=== PATIENT | male | born 1950 | race Caucasian/White ===

== ENCOUNTER 2017-01-06 18:44 | Inpatient (IN) | payer OTHER, BC ==
[~2017-01-06] VITALS: Ht 175.3 cm; Wt 89.3 kg
[2017-01-06 19:04] LABS: BASOPHIL COUNT 0.1 K/uL (0-0.1); EOSINOPHIL (%) 1.4 % (0-5); EOSINOPHIL COUNT 0.2 K/uL (0-0.3); HEMATOCRIT 42.3 % (38.0-50.0); IMMATURE GRANULOCYTE (%) 0.8 % (0.0-0.7); IMMATURE GRANULOCYTE COUNT 0.1 K/uL; INSTRUMENT ABS NEUTROPHIL CT 7.7 K/uL; MCH 31.9 PG (29.0-34.0); MCHC 34.3 G/DL (30.0-36.0); MCV 93.2 FL (86-99); MEAN PLAT.VOLUME 9.2 uM^3 (9.0-12.4); MONOCYTE (%) 7.7 % (3-12); MONOCYTE COUNT 0.8 K/uL (0-0.8); NEUTROPHIL (%) 70.9 % (45-76); NEUTROPHIL COUNT 7.7 K/uL (1.8-6.4); PLATELET COUNT 223 K/uL (156-360); RBC DIS.WIDTH-CV 13.8 % (11.8-14.6); RBC DIS.WIDTH-SD 47.1 % (39-53); RED BLOOD COUNT 4.54 M/uL (4.00-5.50); WHITE BLOOD COUNT 10.9 K/uL (4.1-10.2)
[2017-01-06 19:13] LABS: AMYLASE 78 IU/L (1-118); CHLORIDE 97 mEq/L (99-109); POTASSIUM 4.7 mEq/L (3.7-5.4); SODIUM 130 mEq/L (136-147)
[2017-01-06 19:14] LABS: GLUCOSE 162 mg/dL (70-99)
[2017-01-06 19:16] LABS: ANION GAP 14 MEQ/L (2-14)
[2017-01-06 19:17] LABS: SERUM ETHYL ALCOHOL < 10 mg/dL
[2017-01-06 19:26] LABS: GFR ESTIMATE (CALCULATED) 54 mL/min/; LIPASE 52 U/L (1.0-51.0); UREA NITROGEN (BUN) 27 mg/dL (9-23)
[2017-01-06 20:20] LABS: ADD MIUA? YES; BILIRUBIN NEGATIVE; BLOOD NEGATIVE; COLOR YELLOW ((YELLOW)); GLUCOSE (STRIP) NEGATIVE; KETONES NEGATIVE; LEUKOCYTES NEGATIVE; NITRITE NEGATIVE; PROTEIN (STRIP) 100; SPECIFIC GRAVITY 1.016 (1.000-1.030); UROBILINOGEN 0.2 MG/DL (0.2-1.0)
[2017-01-06 20:22] LABS: BACTERIA RARE /HPF; EPITHELIAL CELLS NONE SEEN /HPF; MUCUS TRACE /LPF; RED BLOOD CELLS 0-5 /HPF (0-5); UCUL ADDED? NO; WHITE BLOOD CELLS 0-5 /HPF (0-5)
[2017-01-06 20:28] LABS: TROP-I INTERPRETATION NEGATIVE; TROPONIN-I 0.01 ng/mL (0.0-0.30)
[2017-01-06 20:32] LABS: ADD MEDTOX COMMENT Y; AMPHETAMINE NEGATIVE (500 ng/mL); BARBITURATES NEGATIVE (200 ng/mL); BENZODIAZEPINES NEGATIVE (150 ng/mL); COCAINE NEGATIVE (150 ng/mL); INTERNAL CONTROLS VALID? YES; METHADONE NEGATIVE (200 ng/mL); METHAMPHETAMINE NEGATIVE (500 ng/mL); OPIATES (MORPHINE) NEGATIVE (100 ng/mL); OXYCODONE NEGATIVE (100 ng/mL); PHENCYCLIDINE NEGATIVE (25 ng/mL); PROPOXYPHENE NEGATIVE (300 ng/mL); THC CANNABINOIDS PRESUMPTIVE POSITIVE (50 ng/mL); TRICYCLIC ANTIDEPRESSANTS NEGATIVE (300 ng/mL)
[2017-01-06 22:40] LABS: TOTAL BILIRUBIN 0.4 mg/dL (0.0-1.0)
[2017-01-06 22:41] LABS: ALKALINE PHOSPHATASE 60 IU/L (3-129)
[2017-01-06 22:44] LABS: DIRECT BILIRUBIN 0.2 mg/dL (0.0-0.3)
[2017-01-06] MEDS ORDERED: ALLOPURINOL300 MG PO (23:00)
[2017-01-06] MEDS ORDERED: CITALOPRAM HBR20 MG PO (23:01)
[2017-01-06] MEDS ORDERED: GLIMEPIRIDE4 MG PO (23:02)
[2017-01-06] MEDS ORDERED: LISINOPRIL40 MG PO (23:02)
[2017-01-06] MEDS ORDERED: APRESOLINE50 MG PO (23:02)
[2017-01-06] MEDS ORDERED: LOPRESSOR50 MG PO (23:03)
[2017-01-06] MEDS ORDERED: SPIRONOLACTONE25 MG PO (23:03)
[2017-01-06] MEDS ORDERED: CLOPIDOGREL75 MG PO (23:03)
[2017-01-06] MEDS ORDERED: COLCRYS0.6 MG PO (23:04)
[2017-01-06] MEDS ORDERED: ASPIR 8181 M1 PO (23:04)
[2017-01-07] VITALS (7 sets, daily range): BP systolic 128–156; BP diastolic 61–69
[2017-01-07 06:25] LABS: POINT-OF-CARE METER ID UU14117124
[2017-01-07 10:01] LABS: ANION GAP 7 MEQ/L (2-14); CHLORIDE 105 MEQ/L (99-109); GFR ESTIMATE (CALCULATED) > 59 mL/min/; GLUCOSE 128 mg/dL (70-99); POTASSIUM 4.6 MEQ/L (3.7-5.4); SAMPLE HEMOLYSIS CHECK 0; SAMPLE ICTERIC CHECK 0; SAMPLE LIPEMIA CHECK 0; SODIUM 136 MEQ/L (136-147); UREA NITROGEN (BUN) 22 mg/dL (9-23)
[2017-01-07 10:05] LABS: TROP-I INTERPRETATION NEGATIVE; TROPONIN-I 0.02 ng/mL (0.0-0.30)
[2017-01-07 11:40] LABS: POINT-OF-CARE METER ID UU14188577
[2017-01-07 16:47] LABS: POINT-OF-CARE METER ID UU14188577
[2017-01-07 21:35] LABS: POINT-OF-CARE METER ID UU14208753
[2017-01-08 04:50] VITALS: BP 156/69
[2017-01-08 06:10] LABS: BASOPHIL COUNT 0.1 K/uL (0-0.1); EOSINOPHIL (%) 1.8 % (0-5); EOSINOPHIL COUNT 0.2 K/uL (0-0.3); HEMATOCRIT 37.2 % (38.0-50.0); IMMATURE GRANULOCYTE (%) 0.4 % (0.0-0.7); INSTRUMENT ABS NEUTROPHIL CT 7.7 K/uL; LYMPHOCYTE COUNT 1.2 K/uL (1.0-2.8); MCH 32.7 PG (29.0-34.0); MCHC 33.9 G/DL (30.0-36.0); MCV 96.6 FL (86-99); MEAN PLAT.VOLUME 9.4 uM^3 (9.0-12.4); MONOCYTE (%) 10.8 % (3-12); MONOCYTE COUNT 1.1 K/uL (0-0.8); NEUTROPHIL (%) 74.6 % (45-76); NEUTROPHIL COUNT 7.7 K/uL (1.8-6.4); PLATELET COUNT 162 K/uL (156-360); RBC DIS.WIDTH-CV 14.4 % (11.8-14.6); RBC DIS.WIDTH-SD 50.5 % (39-53); RED BLOOD COUNT 3.85 M/uL (4.00-5.50); WHITE BLOOD COUNT 10.4 K/uL (4.1-10.2)
[2017-01-08 06:34] LABS: ANION GAP 8 MEQ/L (2-14); CHLORIDE 103 MEQ/L (99-109); CREATINE KINASE 132 IU/L (1-294); GFR ESTIMATE (CALCULATED) 59 mL/min/; GLUCOSE 124 mg/dL (70-99); POTASSIUM 4.5 MEQ/L (3.7-5.4); SAMPLE HEMOLYSIS CHECK 0; SAMPLE ICTERIC CHECK 0; SAMPLE LIPEMIA CHECK 0; SODIUM 135 MEQ/L (136-147); UREA NITROGEN (BUN) 20 mg/dL (9-23)
[2017-01-08 06:35] LABS: HDL CHOLESTEROL 37 MG/DL (Desirable>=40); LDL CHOLESTEROL 55 mg/dL (Desirable<100); NON-HDL CHOLESTEROL 71 mg/dL (Desirable<160); TOTAL CHOLESTEROL 108 mg/dL (Desirable<200); TRIGLYCERIDES 80 MG/DL (Normal: <150)
[2017-01-08 06:39] LABS: TROP-I INTERPRETATION NEGATIVE; TROPONIN-I 0.02 ng/mL (0.0-0.30)
[2017-01-08 07:00] LABS: POINT-OF-CARE METER ID UU14117124
[2017-01-08 08:17] VITALS: BP 150/68
[2017-01-08 09:05] LABS: Estimated Average Glucose 137 mg/dL (70-123); HEMOGLOBIN A1c (GLYCOHEMOGLOB) 6.4 % HGB (Below 5.7)
[2017-01-08 10:23] LABS: TROP-I INTERPRETATION NEGATIVE; TROPONIN-I 0.01 ng/mL (0.0-0.30)
[2017-01-08 11:32] VITALS: BP 161/70
[2017-01-08 11:41] LABS: POINT-OF-CARE METER ID UU14117124
[2017-01-08 16:26] VITALS: BP 154/72
[2017-01-08 16:35] LABS: POINT-OF-CARE METER ID UU14117124
[2017-01-08 19:34] VITALS: BP 144/67
[2017-01-08 22:00] LABS: POINT-OF-CARE METER ID UU14117124
[2017-01-08 23:22] VITALS: BP 158/72
[2017-01-09 04:33] VITALS: BP 160/71
[2017-01-09 06:45] LABS: POINT-OF-CARE METER ID UU14117124
[2017-01-09 08:34] VITALS: BP 137/67
[2017-01-09 09:39] LABS: HEMATOCRIT 36.9 % (38.0-50.0); MCH 32.6 PG (29.0-34.0); MCHC 33.9 G/DL (30.0-36.0); MCV 96.3 FL (86-99); MEAN PLAT.VOLUME 9.1 uM^3 (9.0-12.4); PLATELET COUNT 166 K/uL (156-360); RBC DIS.WIDTH-CV 13.9 % (11.8-14.6); RBC DIS.WIDTH-SD 49.5 % (39-53); RED BLOOD COUNT 3.83 M/uL (4.00-5.50); WHITE BLOOD COUNT 9.5 K/uL (4.1-10.2)
[2017-01-09 12:06] LABS: POINT-OF-CARE METER ID UU14117124
[2017-01-09 12:07] VITALS: BP 162/74
[2017-01-09] MEDS ORDERED: HYDROCODON-ACE1 EAC7 PO (13:12)
[2017-01-09] MEDS ORDERED: CYCLOBENZAPRINE10 MG PO (13:12)
== END 2017-01-09 15:09 | disposition home health service (06) | DRG 312 ==
LOC: EME 18:44 → EDOF 22:09 → 3EAST 22:09 → ENRESERV 22:11 → 3EAST 01-07 01:17
PROVIDERS: Emergency Medicine; Internal Medicine; Internal Medicine Nephrology; Physician Assistant Medical; Physician Assistant Surgical
DX: R55 Syncope and collapse (principal); E86.1 Hypovolemia; E87.1 Hypo-osmolality and hyponatremia; I35.2 Nonrheumatic aortic (valve) stenosis with insufficiency; I47.2 Ventricular tachycardia; S00.81XA Abrasion of other part of head, initial encounter; S30.1XXA Contusion of abdominal wall, initial encounter; S80.02XA Contusion of left knee, initial encounter; S00.83XA Contusion of other part of head, initial encounter; M25.461 Effusion, right knee; R07.9 Chest pain, unspecified; V48.5XXA Car driver injured in noncollision transport accident in traffic accident, initial encounter; I71.2 Thoracic aortic aneurysm, without rupture; I12.9 Hypertensive chronic kidney disease with stage 1 through stage 4 chronic kidney disease, or unspecified chronic kidney disease; E11.22 Type 2 diabetes mellitus with diabetic chronic kidney disease; N18.3 Chronic kidney disease, stage 3 (moderate); E11.65 Type 2 diabetes mellitus with hyperglycemia; I25.10 Atherosclerotic heart disease of native coronary artery without angina pectoris; R60.0 Localized edema; R26.81 Unsteadiness on feet; R42 Dizziness and giddiness; E78.5 Hyperlipidemia, unspecified; F12.90 Cannabis use, unspecified, uncomplicated; F17.210 Nicotine dependence, cigarettes, uncomplicated; I25.2 Old myocardial infarction; M10.9 Gout, unspecified; M43.10 Spondylolisthesis, site unspecified; Z79.02 Long term (current) use of antithrombotics/antiplatelets; Z79.82 Long term (current) use of aspirin; Z79.84 Long term (current) use of oral hypoglycemic drugs; Z82.49 Family history of ischemic heart disease and other diseases of the circulatory system; Z95.5 Presence of coronary angioplasty implant and graft
CPT/HCPCS: 70450; 71010; 71275; 72125; 72129; 72132; 73560; 73700; 74177; 80048; 80061; 80076; 81003; 82150; 82550; 82948; 83036; 83690; 83880; 84484; 84999; 85025; 85027; 86850; 86900; 86901; 93005; 93306; 97530 GP; 99281; 99285; G0378; G0480; J1650; J1815; J7030

== ENCOUNTER 2017-05-27 14:46 | Inpatient (IN) | payer OTHER, BC ==
[~2017-05-27] VITALS: Ht 175.3 cm; Wt 76.6 kg
[~2017-05-27 14:46] MED LIST: ALLOPURINOL300 MG PO; APRESOLINE50 MG PO; ASPIR 8181 M1 PO; CITALOPRAM HBR20 MG PO; CLOPIDOGREL75 MG PO; COLCRYS0.6 MG PO; CYCLOBENZAPRINE10 MG PO; GLIMEPIRIDE4 MG PO; HYDROCODON-ACE1 EAC7 PO; LISINOPRIL40 MG PO; LOPRESSOR50 MG PO; SPIRONOLACTONE25 MG PO
[2017-05-27 15:14] LABS: BASOPHIL (%) 0.8 % (0-1); BASOPHIL COUNT 0.1 K/uL (0-0.1); EOSINOPHIL (%) 0.1 % (0-5); HEMATOCRIT 40.1 % (38.0-50.0); HEMOGLOBIN 13.3 G/DL (12.5-16.6); IMMATURE GRANULOCYTE (%) 0.4 % (0.0-0.7); LYMPHOCYTE (%) 6.3 % (15-42); LYMPHOCYTE COUNT 0.6 K/uL (1.0-2.8); MCH 28.5 PG (29.0-34.0); MCHC 33.2 G/DL (30.0-36.0); MCV 86.1 FL (86-99); MONOCYTE COUNT 0.6 K/uL (0-0.8); NEUTROPHIL (%) 86.4 % (45-76); PLATELET COUNT 201 K/uL (156-360); RBC DIS.WIDTH-CV 15.1 % (11.8-14.6); RBC DIS.WIDTH-SD 47.7 % (39-53); RED BLOOD COUNT 4.66 M/uL (4.00-5.50); WHITE BLOOD COUNT 9.3 K/uL (4.1-10.2)
[2017-05-27 15:24] LABS: CHLORIDE 97 mEq/L (99-109); POTASSIUM 4.5 mEq/L (3.7-5.4); SODIUM 130 mEq/L (136-147)
[2017-05-27 15:25] LABS: MAGNESIUM 1.8 mg/dL (1.3-2.7)
[2017-05-27 15:27] LABS: GLUCOSE 222 mg/dL (70-99); TOTAL PROTEIN 7.5 g/dL (6.4-8.3)
[2017-05-27 15:29] LABS: TOTAL BILIRUBIN 0.8 mg/dL (0.0-1.0)
[2017-05-27 15:30] LABS: ALKALINE PHOSPHATASE 96 IU/L (3-129); CREATININE 1.5 mg/dL (0.6-1.3); GFR ESTIMATE (CALCULATED) 49 mL/min/ (58.99-99999)
[2017-05-27 15:31] LABS: UREA NITROGEN (BUN) 20 mg/dL (9-23)
[2017-05-27 15:32] LABS: AST (GOT) 22 IU/L (2-34)
[2017-05-27 15:33] LABS: ALT (GPT) 21 IU/L (3-49); CREATINE KINASE 120 IU/L (1-294); TOTAL CK 120 IU/L (1-294)
[2017-05-27 15:35] LABS: TROP-I INTERPRETATION NEGATIVE; TROPONIN-I 0.05 ng/mL (0.0-0.30)
[2017-05-27 15:43] LABS: CK-MB 2.7 ng/mL (0.0-4.9); CKMB RELATIVE INDEX 2.3 (0.0-3.9)
[2017-05-27] MEDS ORDERED: ATORVASTATIN CA40 MG PO (18:28)
[2017-05-27] MEDS ORDERED: BRILINTA90 MG PO (18:29)
[2017-05-27 18:36] LABS: TROP-I INTERPRETATION NEGATIVE; TROPONIN-I 0.09 ng/mL (0.0-0.30)
[2017-05-27 19:50] LABS: APPEARANCE CLEAR ((CLEAR)); BILIRUBIN NEGATIVE; BLOOD NEGATIVE; COLOR YELLOW ((YELLOW)); GLUCOSE (STRIP) 50; KETONES NEGATIVE; LEUKOCYTES NEGATIVE; NITRITE NEGATIVE; PROTEIN (STRIP) >=500; SPECIFIC GRAVITY 1.018 (1.000-1.030); UROBILINOGEN 0.2 MG/DL (0.2-1.0)
[2017-05-27 20:13] LABS: BACTERIA RARE /HPF; EPITHELIAL CELLS NONE SEEN /HPF; MUCUS TRACE /LPF; UCUL ADDED? NO; WHITE BLOOD CELLS 0-5 /HPF (0-5)
[2017-05-27 22:30] VITALS: BP 109/65
[2017-05-28 01:14] LABS: TROP-I INTERPRETATION NEGATIVE; TROPONIN-I 0.09 ng/mL (0.0-0.30)
[2017-05-28 04:17] VITALS: BP 114/67
[2017-05-28 07:12] VITALS: BP 99/67
[2017-05-28 07:13] LABS: HEMATOCRIT 37.9 % (38.0-50.0); HEMOGLOBIN 11.9 G/DL (12.5-16.6); MCH 27.3 PG (29.0-34.0); MCHC 31.4 G/DL (30.0-36.0); MCV 86.9 FL (86-99); PLATELET COUNT 179 K/uL (156-360); RBC DIS.WIDTH-CV 15.1 % (11.8-14.6); RBC DIS.WIDTH-SD 48.7 % (39-53); RED BLOOD COUNT 4.36 M/uL (4.00-5.50); WHITE BLOOD COUNT 7.9 K/uL (4.1-10.2)
[2017-05-28 07:29] LABS: TROP-I INTERPRETATION NEGATIVE
[2017-05-28 07:35] LABS: CHLORIDE 96 MEQ/L (99-109); CREATININE 1.6 MG/DL (0.6-1.3); GFR ESTIMATE (CALCULATED) 46 mL/min/ (58.99-99999); POTASSIUM 4.1 MEQ/L (3.7-5.4); SODIUM 133 MEQ/L (136-147); UREA NITROGEN (BUN) 18 mg/dL (9-23)
[2017-05-28 07:36] LABS: GLUCOSE 115 mg/dL (70-99)
[2017-05-28 12:17] VITALS: BP 121/70
[2017-05-28 16:11] VITALS: BP 121/71
[2017-05-28 17:22] LABS: APPEARANCE CLEAR ((CLEAR)); BILIRUBIN NEGATIVE; BLOOD SMALL; COLOR YELLOW ((YELLOW)); GLUCOSE (STRIP) NEGATIVE; KETONES NEGATIVE; LEUKOCYTES NEGATIVE; NITRITE NEGATIVE; PROTEIN (STRIP) 30; SPECIFIC GRAVITY 1.006 (1.000-1.030); UROBILINOGEN 0.2 MG/DL (0.2-1.0)
[2017-05-28 17:46] LABS: BACTERIA NONE SEEN /HPF; EPITHELIAL CELLS NONE SEEN /HPF; MUCUS TRACE /LPF; RED BLOOD CELLS 0-5 /HPF (0-5); UCUL ADDED? NO; WHITE BLOOD CELLS 0-5 /HPF (0-5)
[2017-05-28 19:37] VITALS: BP 120/71
[2017-05-28 23:32] VITALS: BP 131/66
[2017-05-29 03:33] VITALS: BP 152/83
[2017-05-29 06:00] LABS: BASOPHIL (%) 1.3 % (0-1); BASOPHIL COUNT 0.1 K/uL (0-0.1); EOSINOPHIL (%) 1.3 % (0-5); EOSINOPHIL COUNT 0.1 K/uL (0-0.3); HEMOGLOBIN 13.5 G/DL (12.5-16.6); IMMATURE GRANULOCYTE (%) 0.2 % (0.0-0.7); LYMPHOCYTE (%) 20.3 % (15-42); LYMPHOCYTE COUNT 1.3 K/uL (1.0-2.8); MCH 27.3 PG (29.0-34.0); MCHC 31.4 G/DL (30.0-36.0); MONOCYTE (%) 13.7 % (3-12); MONOCYTE COUNT 0.9 K/uL (0-0.8); NEUTROPHIL (%) 63.2 % (45-76); PLATELET COUNT 214 K/uL (156-360); RBC DIS.WIDTH-CV 15.4 % (11.8-14.6); RBC DIS.WIDTH-SD 49.1 % (39-53); RED BLOOD COUNT 4.94 M/uL (4.00-5.50); WHITE BLOOD COUNT 6.4 K/uL (4.1-10.2)
[2017-05-29 06:21] LABS: ALBUMIN 3.6 G/DL (3.2-4.8); ALKALINE PHOSPHATASE 61 IU/L (3-129); ALT (GPT) 16 IU/L (3-49); AST (GOT) 26 IU/L (2-34); CHLORIDE 95 MEQ/L (99-109); CREATININE 1.7 MG/DL (0.6-1.3); GFR ESTIMATE (CALCULATED) 43 mL/min/ (58.99-99999); GLUCOSE 141 mg/dL (70-99); POTASSIUM 4.5 MEQ/L (3.7-5.4); SODIUM 134 MEQ/L (136-147); TOTAL BILIRUBIN 0.6 MG/DL (0.0-1.0); TOTAL PROTEIN 7.1 G/DL (6.4-8.3); UREA NITROGEN (BUN) 25 mg/dL (9-23)
[2017-05-29 08:08] VITALS: BP 148/82
[2017-05-29 11:35] VITALS: BP 114/68
[2017-05-29 16:02] VITALS: BP 117/66
[2017-05-29 20:02] VITALS: BP 109/74
[2017-05-29 23:52] VITALS: BP 123/72
[2017-05-30 04:00] VITALS: BP 120/77
[2017-05-30 05:07] LABS: BASOPHIL (%) 1.2 % (0-1); BASOPHIL COUNT 0.1 K/uL (0-0.1); EOSINOPHIL (%) 2.9 % (0-5); EOSINOPHIL COUNT 0.2 K/uL (0-0.3); HEMATOCRIT 43.1 % (38.0-50.0); HEMOGLOBIN 13.9 G/DL (12.5-16.6); IMMATURE GRANULOCYTE (%) 0.2 % (0.0-0.7); LYMPHOCYTE (%) 25.3 % (15-42); LYMPHOCYTE COUNT 1.7 K/uL (1.0-2.8); MCH 27.6 PG (29.0-34.0); MCHC 32.3 G/DL (30.0-36.0); MCV 85.5 FL (86-99); MONOCYTE (%) 13.8 % (3-12); MONOCYTE COUNT 0.9 K/uL (0-0.8); NEUTROPHIL (%) 56.6 % (45-76); NEUTROPHIL COUNT 3.7 K/uL (1.8-6.4); PLATELET COUNT 209 K/uL (156-360); RBC DIS.WIDTH-CV 15.2 % (11.8-14.6); RBC DIS.WIDTH-SD 47.8 % (39-53); RED BLOOD COUNT 5.04 M/uL (4.00-5.50); WHITE BLOOD COUNT 6.6 K/uL (4.1-10.2)
[2017-05-30 05:17] LABS: CHLORIDE 97 MEQ/L (99-109); POTASSIUM 3.9 MEQ/L (3.7-5.4); SODIUM 134 MEQ/L (136-147)
[2017-05-30 05:23] LABS: CREATININE 1.7 MG/DL (0.6-1.3); GFR ESTIMATE (CALCULATED) 43 mL/min/ (58.99-99999); GLUCOSE 151 mg/dL (70-99); UREA NITROGEN (BUN) 33 mg/dL (9-23)
[2017-05-30 07:58] VITALS: BP 118/71
[2017-05-30] MEDS ORDERED: ASPIR-LOW81 MG PO (08:36)
[2017-05-30] MEDS ORDERED: SPIRIVA RESPIMAT4 GM IH (08:37)
[2017-05-30] MEDS ORDERED: OSELTAMIVIR PHO75 MG PO (08:37)
[2017-05-30] MEDS ORDERED: ADVAIR HFA120 INHALA IH (08:37)
[2017-05-30] MEDS ORDERED: FUROSEMIDE40 MG PO (08:37)
[2017-05-30] MEDS ORDERED: VENTOLIN HFA18 GM IH (08:38)
== END 2017-05-30 09:51 | disposition home or self-care (01) | DRG 189 ==
LOC: EME 14:46 → 4EAST 21:17 → EDOF 21:17 → ENRESERV 21:32 → 4EAST 22:28 → ENRESERV 05-28 21:14 → 3EAST 05-28 23:10
PROVIDERS: Emergency Medicine; Hospitalist
DX: J96.01 Acute respiratory failure with hypoxia (principal); I13.0 Hypertensive heart and chronic kidney disease with heart failure and stage 1 through stage 4 chronic kidney disease, or unspecified chronic kidney disease; I50.21 Acute systolic (congestive) heart failure; J10.1 Influenza due to other identified influenza virus with other respiratory manifestations; J20.8 Acute bronchitis due to other specified organisms; E87.1 Hypo-osmolality and hyponatremia; N18.3 Chronic kidney disease, stage 3 (moderate); E11.22 Type 2 diabetes mellitus with diabetic chronic kidney disease; I25.10 Atherosclerotic heart disease of native coronary artery without angina pectoris; I25.2 Old myocardial infarction; E78.5 Hyperlipidemia, unspecified; M10.9 Gout, unspecified; G47.33 Obstructive sleep apnea (adult) (pediatric); Z99.81 Dependence on supplemental oxygen; I35.0 Nonrheumatic aortic (valve) stenosis; R31.9 Hematuria, unspecified; F12.90 Cannabis use, unspecified, uncomplicated; Z95.1 Presence of aortocoronary bypass graft; Z95.3 Presence of xenogenic heart valve; Z95.5 Presence of coronary angioplasty implant and graft; Z86.79 Personal history of other diseases of the circulatory system; Z79.84 Long term (current) use of oral hypoglycemic drugs; Z79.82 Long term (current) use of aspirin; Z79.02 Long term (current) use of antithrombotics/antiplatelets; Z87.891 Personal history of nicotine dependence; Z82.3 Family history of stroke
CPT/HCPCS: 71045; 80048; 80053; 81003; 82550; 82553; 82948; 83605; 83735; 83880; 84484; 85025; 85027; 87502; 93005; 93306; 94640; 94640 76; 94799; 99202; 99281; 99285; J1644; J1815; J1940; J7030